=== PATIENT | male | born 1985 | race Caucasian/White ===

== ENCOUNTER 2017-10-03 11:22 | Emergency (ER) | payer BC | END 2017-10-03 13:02 | disposition home or self-care (01) | LOC: E/R 11:22 | DX: S69.92XA Unspecified injury of left wrist, hand and finger(s), initial encounter (principal); W22.8XXA Striking against or struck by other objects, initial encounter; Y92.9 Unspecified place or not applicable | CPT/HCPCS: 73090; 73110-RT; 99284-25 ==

== ENCOUNTER 2018-04-23 12:16 | Emergency (ER) | payer BC ==
[2018-04-23] MEDS: traMADol 50 MG TAB PO (13:17)
== END 2018-04-23 14:35 | disposition home or self-care (01) ==
LOC: FTE 12:16
DX: S49.91XA Unspecified injury of right shoulder and upper arm, initial encounter (principal); X58.XXXA Exposure to other specified factors, initial encounter; Y92.9 Unspecified place or not applicable
CPT/HCPCS: 73030; 73030-RT; 73080-RT; 99283-25

== ENCOUNTER 2019-05-02 17:25 | Emergency (ER) | payer BC | END 2019-05-02 19:05 | disposition home or self-care (01) | LOC: FTE 17:25 | DX: M79.675 Pain in left toe(s) (principal) | CPT/HCPCS: 73620; 99283-25 ==